=== PATIENT | male | born 1995 | race Caucasian/White ===

== ENCOUNTER 2019-06-18 08:21 | Emergency (ER) | payer SELFPAY ==
[2019-06-18 08:25] VITALS: BP 117/57; PULSE 72; RESP 18; TEMP 36.9; O2SAT 97
--- NOTE | 2019-06-18 08:41 | ED.GENADUL_ITS ---
Discharge Plan Disposition Patient Disposition: HOME Condition: Improving Discharge Details Chief Complaint: Nausea/Vomit/Diar Clinical Impression: Gastroenteritis Primary Care Provider: [facility] ED Provider: Mariana Yan Home Meds and New Rx's Prescriptions: New prochlorperazine maleate [Compazine] 10 mg tablet 10 mg PO Q8H PRN (Reason: nausea and vomiting) Qty: 7 RF: 0 Continued albuterol sulfate [ProAir HFA] 200 PUFF HFA aerosol inhaler 2 puff Inhalation PRN PRNQty: 2 RF: 0 albuterol sulfate 1.25 MG/3 ML solution for nebulization 1 Inhalation RF: 0 famotidine [Pepcid] 40 mg Tablet 40 mg PO DAILY RF: 0 (DME) nebulizers Misc MISCELLANEOUS RF: 0 (DME) nebulizer accessories Misc MISCELLANEOUS RF: 0 Discharge Instructions Instructions: Gastroenteritis (ED) Additional Instructions: Stop taking your Zofran while taking the Compazine as needed and directed for nausea and vomiting. Stop taking the Pepcid and try [id number] Nexium, Prilosec or Prevacid to help with your upper abdominal pain. If you feel restless with taking the Compazine, you can try taking 1-2 tabs of [id number]-[id number] Benadryl as needed and directed. You will receive a call from care management regarding a follow-up appointment with the primary care doctor. Return to the emergency department if you develop any worsening or new concerning symptoms. 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 Admits to recent stress and is currently homeless. Patient is mainly requesting some fluids. Vitals within normal limits. Patient appears nontoxic but uncomfortable. He has tenderness palpation in his epigastrium. He has scattered wheezing but he states is chronic and denies shortness of breath. Differential diagnosis includes gastroenteritis, PUD, gastritis, cyclic vomiting syndrome due to daily marijuana use, stress-induced vomiting, irritable bowel syndrome. Will check screening labs, give a dose of Compazine, GI cocktail and liter IV fluids and reassess. 0940 --labs reviewed and unremarkable. Patient states he feels much better and is requesting to go home. Patient is currently homeless but states he is going to be staying with a friend. He was offered to speak with care management but declined. He does not have a primary care doctor. He was placed on care management list to establish care and follow-up. Will send with a prescription for Compazine in place of Zofran. 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 He stated that he felt restless prior to discharge. He appeared minimally restless, no focal deficits, vitals within normal limits. Discussed that this is likely the Compazine. He drove himself here and would not recommend Benadryl at this time but he was advised to take this when he gets home and as needed. He is advised to return here with any worsening or concerning symptoms. Medical Records Medical records reviewed: Yes I reviewed the patient's medical records. Lab Data Lab results reviewed: Yes I reviewed the patient's lab results. Labs: Laboratory Tests Range/Units 06/18/19 06/18/19 08:45 08:45 WBC (4.4-10.8) k/cumm 11.54 H RBC (4.50-6.00) m/cumm 4.76 Hgb (13.5-17.5) g/dL 15.1 Hct (40.0-50.0) % 43.0 MCV (80-95) fL 90.3 MCH (27.0-33.0) pg 31.7 MCHC (32.0-36.0) g/dL 35.1 RDW (11.8-14.1) % 11.7 L Plt Count (130-400) x1000/uL 288 MPV (8.0-11.0) fL 10.4 Immature Gran % 0.1 Neutrophils % 78.6 Lymphocytes % 10.5 Monocytes % 8.1 Eosinophils % 2.4 Basophils % 0.3 Absolute Neutrophils (1.2-6.7) k/cumm 9.07 H Absolute Lymphocytes (1.2-3.4) k/cumm 1.21 Absolute Monocytes (0.11-0.7) k/cumm 0.93 H Absolute Eosinophils (0.0-0.7) k/cumm 0.28 Absolute Basophils (0.0-0.2) k/cumm 0.03 Sodium (136-145) mmol/L 143 Potassium (3.5-5.1) mmol/L 3.6 Chloride (98-107) mmol/L 105 Carbon Dioxide (21.0-32.0) mmol/L 28.7 Anion Gap (3-11) mmol/L 9.3 BUN (7-18) mg/dL 12 Creatinine (0.70-1.30) mg/dL 1.10 Estimated GFR/1.73 m2 (mL/min/1.73m2) >= 60.00 Glucose (70-100) mg/dL 101 H Calcium (8.5-10.1) mg/dL 8.5 Total Bilirubin (0.2-1.0) mg/dL 1.4 H AST (15-37) U/L 12 L ALT (16-63) U/L 16 Alkaline Phosphatase (46-116) U/L 64 Total Protein (6.4-8.2) g/dL 7.4 Albumin (3.4-5.0) g/dL 4.3 Lipase (73-393) U/L 105 HPI General Mode of arrival: ambulatory . Date/Time Provider Initiated Documentation: 06/18/19 08:29 . Limitations to Documentation: no limitations . Information obtained by: patient . HPI Narrative: Patient is a 23-year-old male with a history of hyper eosinophilic syndrome who presents with vomiting, diarrhea and epigastric pain for the past week. Patient states his symptoms started after his girlfriend had a bipolar episode and he had to move out of the place he was staying and now he is homeless. He states he works in a [employer]. He has been vomiting approximately 2 times daily which is been mainly bile. He has been having approximately 2 episodes of diarrhea daily which has been yellow without any bleeding. He denies hematemesis. He states he feels hungry but every time he attempts to eat he has worsening epigastric pain. He denies fever, chest pain, shortness of breath, urinary symptoms, recent antibiotics. He states he did travel to [place] and [place] recently. He states he was seen at an urgent care clinic earlier this week for the same symptoms and was given Zofran which she has taken with temporary relief. He has also been taking Pepcid which he last took a few hours ago with some relief. He states his pain is currently 0/10 but is 6/10 at its worst. He also states that he had a history of wheezing in the past in which he had an extensive work- up and was thought to have asthma but was diagnosed with hypereosinophilic syndrome in [place]. Patient states he had been treated with prednisone and hydroxyurea but he did not think this was helping so he stopped it 2 years ago and has not followed up since. He states he has not had any worsening issues since then but does have intermittent wheezing which he has as well now but denies any shortness of breath. Related Data Home Medications Medication Instructions Recorded Confirmed albuterol sulfate 1 INHALATION 06/02/16 albuterol sulfate [ProAir HFA] 2 puff INHALATION PRN PRN #2 03/16/18 06/18/19 inhaler famotidine [Pepcid] 40 mg PO DAILY 06/18/19 06/18/19 nebulizer accessories 06/18/19 06/18/19 nebulizers 06/18/19 06/18/19 prochlorperazine maleate 10 mg PO Q8H PRN #7 tab 06/18/19 [Compazine] Previous Rx's Medication Instructions Recorded prochlorperazine maleate 10 mg PO Q8H PRN #7 tab 06/18/19 [Compazine] Allergies Allergy/AdvReac Type Severity Reaction Status Date / Time house dust mite Allergy Intermediate Unverified 06/18/19 08:28 watermelon Allergy Intermediate Unverified 06/18/19 08:28 General Stated Complaint: Nausea/Vomit/Diar EVER: 3 Review of Systems Review of Systems ROS Unobtainable: All systems reviewed & are unremarkable except as noted in HPI and below Constitutional Constitutional: Reports as per HPI, Denies chills and Denies fever(s) Eyes Eyes: Denies blurry vision ENT Ears, Nose, Mouth, and Throat: Denies dizziness, Denies sore throat and Denies throat swelling Cardiovascular Cardiovascular: Denies chest pain and Denies dyspnea Respiratory Respiratory: Denies cough and Denies dyspnea Gastrointestinal Gastrointestinal: Denies abdominal pain, Denies diarrhea and Denies vomiting Genitourinary Genitourinary: Denies hematuria and Denies dysuria Musculoskeletal Musculoskeletal: Denies back pain and Denies numbness Integumentary/Breasts Skin/Breast: Denies lesions and Denies rash Neurologic Neurologic: Denies dizziness, Denies focal weakness and Denies numbness Allergic/Immunologic Allergic/Immunologic: Denies throat swelling [facility] Medical History Asthma (Chronic) H/O endoscopy (Acute) Hypereosinophilic syndrome (Acute) Surgical History H/O colonoscopy (Chronic) Social History (Updated 06/18/19 @ 09:05 by Mariana Yan DO) Smoking/Tobacco Use Status: Never Alcohol Intake: current Alcohol Intake frequency: a few times a month Drug use: Daily Substance use type: marijuana Do you feel safe in your relationship?: Yes Additional Social history: Pt currently homeless Exam Const General: cooperative, healthy appearing and no acute distress HENMT Head: normal to inspection Face and sinus: normal facial exam Eyes General: appearance normal, both eyes and all related structures EOM: EOM intact bilaterally Neck Neck: normal visual inspection and No submandibular swelling Lymphatic: no lymphadenopathy noted Chest Chest: normal inspection of the chest and no tenderness Resp Effort & Inspection: normal respiratory effort and able to speak in complete sentences Auscultation: clear to auscultation bilaterally Cardio Rate: regular rate Rhythm: regular rhythm GI Inspection: normal to inspection Palpation: soft, not firm, not rigid and tender in the epigastrum Auscultation: hypoactive bowel sounds Back/Spine/Pelvis Back: no CVA tenderness Skin General skin exam: no rashes or lesions noted Neuro General: alert, awake and oriented x3 Cognition: normal cognition Speech: speech normal Motor: muscle tone normal throughout Sensory Exam: no sensory deficits noted Extrem General: normal to inspection, full ROM, normal capillary refill, no calf tenderness bilaterally and no edema Psych Appearance: grossly normal Mental Status: mental status grossly normal Speech and Movement: speech and movement normal Affect: normal affect Course Vital Signs Vital signs: Vital Signs Temperature 98.4 F 06/18/19 08:25 Pulse 72 06/18/19 08:25 Respiratory Rate 18 06/18/19 08:25 Blood Pressure 117/57 L 06/18/19 08:25 Pulse Oximetry 97 06/18/19 08:25 Temperature 98.4 F 06/18/19 08:25 Temperature Source Skin 06/18/19 08:25 Pulse 72 06/18/19 08:25 Respiratory Rate 18 06/18/19 08:25 Respiratory Effort 06/18/19 08:31 Blood Pressure 117/57 L 06/18/19 08:25 Blood Pressure Position Sitting 06/18/19 08:25 Pulse Oximetry 97 06/18/19 08:25 Oxygen Delivery Method Room Air 06/18/19 08:25 Oxygen Flow Rate 0 06/18/19 08:25 Pain Level 0 06/18/19 08:25
[2019-06-18] MEDS: Normal Saline 1,000 ML 1000 ML IV (08:45)
[2019-06-18 09:08] LABS: Abs Immature Grans 0.01 k/cumm (0.0-0.09); Absolute Eosinophil Count 0.28 k/cumm (0.0-0.7); Absolute Lymphocyte Count 1.21 k/cumm (1.2-3.4); Basophils % 0.3; Eosinophils % 2.4; HGB 15.1 g/dL (13.5-17.5); Immature Grans % 0.1; Lymphocytes % 10.5; Mean Corp. HGB Concentration 35.1 g/dL (32.0-36.0); Mean Corpuscular Hemoglobin 31.7 pg (27.0-33.0); Mean Corpuscular Volume 90.3 fL (80-95); Mean Platelet Volume 10.4 fL (8.0-11.0); Monocytes % 8.1; Neutrophils % 78.6; Platelet Count 288 x1000/uL (130-400); RBC 4.76 m/cumm (4.50-6.00); RBC Distribution Width 11.7 % (11.8-14.1); White Blood Cell Count 11.54 k/cumm (4.4-10.8)
[2019-06-18 09:09] LABS: Absolute Basophil Count 0.03 k/cumm (0.0-0.2); Absolute Monocyte Count 0.93 k/cumm (0.11-0.7); Absolute Neutrophil Count 9.07 k/cumm (1.2-6.7)
[2019-06-18 09:20] LABS: ALT 16 U/L (16-63); AST 12 U/L (15-37); Albumin 4.3 g/dL (3.4-5.0); Alkaline Phosphatase 64 U/L (46-116); Anion Gap 9.3 mmol/L (3-11); BUN 12 mg/dL (7-18); Bilirubin, Total 1.4 mg/dL (0.2-1.0); CO2 28.7 mmol/L (21.0-32.0); Calcium 8.5 mg/dL (8.5-10.1); Chloride 105 mmol/L (98-107); Glucose 101 mg/dL (70-100); Lipase 105 U/L (73-393); Potassium 3.6 mmol/L (3.5-5.1); Sodium 143 mmol/L (136-145); Total Protein 7.4 g/dL (6.4-8.2)
[2019-06-18] MEDS: Prochlorperazine 10 MG/2 ML VIAL IVP (09:20)
[2019-06-18 10:01] VITALS: BP 102/68; PULSE 83; RESP 18; TEMP 36; O2SAT 97
== END 2019-06-18 10:05 | disposition home or self-care (01) ==
PROVIDERS: Emergency Provider Physician Assistant; PCP Emergency Medicine
DX: K52.9 Noninfective gastroenteritis and colitis, unspecified (principal); R10.13 Epigastric pain; D72.1 Eosinophilia; Z59.0 Homelessness; Z63.9 Problem related to primary support group, unspecified
CPT/HCPCS: 36415; 80053; 83690; 96361; 96374; 99284; 85025; J0780